=== PATIENT | male | born 1940 | race African-American/Black ===

== ENCOUNTER 2017-09-27 16:41 | Emergency (ER) | payer OTHER ==
[~2017-09-27] VITALS: Ht 172.7 cm; Wt 81.9 kg
[~2017-09-27 16:41] MED LIST: ALEVE220 MG PO; AMLODIPINE BESY10 MG PO; ATORVASTATIN CA80 MG PO; BENAZEPRIL HCL40 MG PO; BREO ELLIPTA I1 EACH IH; CYTOMEL25 MCG PO; FIBER500 MG PO; HYDROCHLOROTH12.5 M3 PO; LITE COAT ASPI325 M1 PO; LORATADINE10 M2 PO; SYNTHROID100 MCG PO; TAPAZOLE10 MG PO
[2017-09-27 17:05] LABS: HEMATOCRIT 46.2 % (38.0-50.0); HEMOGLOBIN 15.9 G/DL (12.5-16.6); MCH 33.3 PG (29.0-34.0); MCHC 34.4 G/DL (30.0-36.0); MCV 96.9 FL (86-99); PLATELET COUNT 261 K/uL (156-360); RBC DIS.WIDTH-CV 12.6 % (11.8-14.6); RBC DIS.WIDTH-SD 45.4 % (39-53); RED BLOOD COUNT 4.77 M/uL (4.00-5.50); WHITE BLOOD COUNT 8.8 K/uL (4.1-10.2)
[2017-09-27 17:10] LABS: ALBUMIN 4.5 g/dL (3.2-4.8)
[2017-09-27 17:11] LABS: CHLORIDE 100 mEq/L (99-109); POTASSIUM 3.6 mEq/L (3.7-5.4); SODIUM 142 mEq/L (136-147)
[2017-09-27 17:13] LABS: GLUCOSE 105 mg/dL (70-99)
[2017-09-27 17:15] LABS: TOTAL BILIRUBIN 0.9 mg/dL (0.0-1.0)
[2017-09-27 17:16] LABS: ALKALINE PHOSPHATASE 45 IU/L (3-129)
[2017-09-27 17:17] LABS: CREATININE 1.1 mg/dL (0.6-1.3); GFR ESTIMATE (CALCULATED) > 59 mL/min/ (58.99-99999)
[2017-09-27 17:18] LABS: AST (GOT) 15 IU/L (2-34); UREA NITROGEN (BUN) 12 mg/dL (9-23)
[2017-09-27 17:19] LABS: ALT (GPT) 9 IU/L (3-49)
[2017-09-27 17:57] LABS: TROP-I INTERPRETATION NEGATIVE; TROPONIN-I < 0.01 ng/mL (0.0-0.30)
[2017-09-27 18:13] LABS: APPEARANCE CLEAR ((CLEAR)); BILIRUBIN NEGATIVE; BLOOD NEGATIVE; COLOR YELLOW ((YELLOW)); GLUCOSE (STRIP) NEGATIVE; KETONES 20; LEUKOCYTES NEGATIVE; NITRITE NEGATIVE; PROTEIN (STRIP) 100
[2017-09-27 18:46] LABS: BACTERIA NONE SEEN /HPF; EPITHELIAL CELLS RARE /HPF; MUCUS TRACE /LPF; RED BLOOD CELLS 0-5 /HPF (0-5); UCUL ADDED? NO; WHITE BLOOD CELLS 0-5 /HPF (0-5)
[2017-09-27] MEDS ORDERED: ZOFRAN ODT4 MG PO (19:50)
[2017-09-27] MEDS ORDERED: KEFLEX500 MG PO (19:50)
[2017-09-27] MEDS ORDERED: NORCO 5/3251 TABLET PO (19:50)
[2017-09-27 20:13] LABS: LIPASE 51 U/L (1.0-51.0)
[2017-09-27 20:44] VITALS: BP 133/73
== END 2017-09-27 21:12 | disposition home or self-care (01) ==
LOC: EME 16:41
DX: R30.0 Dysuria (principal); M54.5 Low back pain; R11.2 Nausea with vomiting, unspecified; K40.90 Unilateral inguinal hernia, without obstruction or gangrene, not specified as recurrent; K57.90 Diverticulosis of intestine, part unspecified, without perforation or abscess without bleeding; J44.9 Chronic obstructive pulmonary disease, unspecified; Z90.49 Acquired absence of other specified parts of digestive tract; Z95.1 Presence of aortocoronary bypass graft; Z87.891 Personal history of nicotine dependence
CPT/HCPCS: 74177; 80053; 81003; 83605; 83690; 84484; 85027; 87086; 93005; 99281; 99285; J1885; J2405; J7030